=== PATIENT | female | born 1965 | race Two or more races ===

== ENCOUNTER 2020-06-09 23:30 | Emergency (ER) | payer OTHER ==
[~2020-06-09] VITALS: Ht 147.3 cm; Wt 47.7 kg
[2020-06-09 23:50] VITALS: BP 170/90
[2020-06-10] MEDS ORDERED: ACETAMINOPHEN 500 MG TABLET PO ONE (01:15)
[2020-06-10] MEDS ORDERED: PERTUSS(ACELL),DIPH,TET VAC/PF 0.5 ML VIAL IM ONE (01:15)
[2020-06-10] MEDS ORDERED: SODIUM CHLORIDE 0.9% 250 ML IRRIG SOLUTION BOTTLE IRRIG ONE (01:15)
== END 2020-06-10 02:16 | disposition home or self-care (01) ==
LOC: EMS 23:32
DX: U07.1 COVID-19 (principal); S61.215A Laceration without foreign body of left ring finger without damage to nail, initial encounter; Z88.0 Allergy status to penicillin; W26.0XXA Contact with knife, initial encounter; Y93.89 Activity, other specified; Y92.89 Other specified places as the place of occurrence of the external cause; Y99.8 Other external cause status
CPT/HCPCS: 90471; 90715; 99283; U0003